=== PATIENT | female | born 1995 | race Caucasian/White ===

== ENCOUNTER 2020-01-15 23:49 | Emergency (ER) | payer SELFPAY ==
[~2020-01-15] VITALS: Ht 165.1 cm; Wt 77.3 kg
[2020-01-16 03:20] VITALS: BP 102/68
== END 2020-01-16 03:20 | disposition home or self-care (01) ==
LOC: EMS 23:49
DX: S90.31XA Contusion of right foot, initial encounter (principal); F41.9 Anxiety disorder, unspecified; F32.9 Major depressive disorder, single episode, unspecified; W22.8XXA Striking against or struck by other objects, initial encounter; Y93.89 Activity, other specified; Y92.89 Other specified places as the place of occurrence of the external cause; Y99.8 Other external cause status